=== PATIENT | female | born 1990 | race Caucasian/White ===

== ENCOUNTER 2017-06-25 00:51 | Inpatient (IN) | payer MEDICAID ==
[2017-06-25] MEDS ORDERED: Sodium Chloride 0.9% 1,000 ML IV ONE (02:00)
[2017-06-25] MEDS ORDERED: Sodium Chloride 0.9% 10 ML Syringe FLUSH PRN (02:20)
[2017-06-25] MEDS ORDERED: Sodium Chloride 0.9% 1,000 ML IV SCH (03:00)
[2017-06-25] MEDS ORDERED: Penicillin G Potassium 5 MILLUNITS in Sodium Chloride 0.9% 50 ML IV ONE ×2 (05:56→06:30)
--- NOTE | 2017-06-25 08:53 | PCM.PNLD ---
Labor Progress Note - VS & Meds Vital Signs: Last Vital Signs Temp 37.0 C 06/25/17 07:30 Pulse 73 06/25/17 08:04 Resp 18 06/25/17 08:04 BP 123/70 06/25/17 08:04 Pulse Ox 96 06/25/17 08:04 Active Medications: Current Medications Sodium Chloride (Normal Saline) 1,000 mls @ 150 mls/hr IV ASDIRECTED ROBI Last Admin: 06/25/17 03:01 Dose: 150 mls/hr Influenza Virus Vaccine (Fluzone Quad 2407-8815) 60 mcg IM .ONCE ONE Stop: 06/25/17 10:01 Sodium Chloride (Saline Flush) 10 ml FLUSH ASDIRECTED PRN PRN Reason: Keep Vein Open Discontinued Medications Sodium Chloride (Normal Saline) 1,000 mls @ 999 mls/hr IV .BOLUS ONE Stop: 06/25/17 03:00 Last Admin: 06/25/17 02:00 Dose: 999 mls/hr Penicillin G Potassium 5 (millunits/ Sodium Chloride) 50 mls @ 100 mls/hr IV ONETIME ONE Stop: 06/25/17 06:25 Last Admin: 06/25/17 05:56 Dose: 100 mls/hr Penicillin G Potassium 5 (millunits/ Sodium Chloride) 50 mls @ 100 mls/hr IV ONETIME ONE Stop: 06/25/17 06:59 Last Admin: 06/25/17 06:16 Dose: 100 mls/hr Influenza Virus Vaccine (Pharmacy To Dose - Influenza Vaccine) 1 each IM ONETIME ONE Stop: 06/27/17 11:01 - Uterine Contractions Uterine Monitoring Mode: External Port Deposit Contraction Frequency (min): 2-3 Contraction Duration (sec): 50-60 Contraction Intensity: Mild to Moderate Uterine Resting Tone: Soft - Vaginal Exam Dilation (cm): 2.5 Effacement (Percent): 80 Cervical Position: Midposition Sterile Vaginal Exam Performed By: Fanta Sharma - Labor Progress (Free Text) Labor Progress: 06/25/2017 26 yo here at 37 6/7 weeks gestation She is to be a RCS Came in last night with complaints of contractions SVE at that time a FT/50/-2 SVE now 2-3/80/-1 Surya every 2-4 minutes moderately strong regardless of interventions Did have a low grade fever with elevated WBC so did initiate GBS protocol regardless of rupture-had 5 units or Pen G given IV FHTs category one Patient tolerating pain of contractions with breathing and position change Surgeon and OR team notified and on there way- care will be given to the Surgeon Labs-O negative, Rubella Immune, Hep B negative, HIV negative, RPR nonreactive, GBS positive, Hgb-10.3
[2017-06-25] MEDS ORDERED: Oxytocin 10 Units/1 ML SDV ONE ×2 (09:07→09:32)
[2017-06-25] MEDS ORDERED: ceFAZolin 1 GM Vial ONE (09:24)
[2017-06-25] MEDS ORDERED: Lactated Ringers 1,000 ML ONE (09:56)
[2017-06-25] MEDS ORDERED: FLU Vacc QS 2017-18 (36mos UP)/PF 60 MCG/0.5 ML Syringe IM ONE (10:00)
[2017-06-25] MEDS ORDERED: Ondansetron 4 MG/2 ML SDV ONE (10:08)
[2017-06-25] MEDS ORDERED: fentaNYL 100 MCG/2 ML SDV ONE (10:24)
[2017-06-25] MEDS ORDERED: Ondansetron 4 MG/2 ML SDV IVPUSH PRN (10:57)
[2017-06-25] MEDS ORDERED: Naloxone 0.4 MG/ML SDV IV PRN (11:08)
[2017-06-25] MEDS ORDERED: HYDROmorphone/Normal Saline 15 MG/30 ML PCA IV PRN (11:08)
[2017-06-25] MEDS: D5 1/2 NS w/ 20 mEq/L KCl 1,000 ML IV SCH ×2 (13:06→21:31)
[2017-06-25] MEDS ORDERED: Lactated Ringers 1,000 ML IV SCH (13:30)
[2017-06-26] MEDS: Acetaminophen/HYDROcodone 325-5 MG Tab PO PRN ×4 (05:21→19:33)
--- NOTE | 2017-06-26 09:31 | PCM.SURGPN ---
- General Info Date of Service: 06/26/17 Date of Surgery/Procedure: 06/25/17 POD#: 1 Post-Op Diagnosis: Repeat section and bilateral tubal ligation. Functional Status: Reports: Pain Controlled, Tolerating Diet, Ambulating, Urinating (Siddiqui. ), Incentive Spirometry - Review of Systems General: Reports: No Symptoms HEENT: Reports: No Symptoms Pulmonary: Reports: No Symptoms Cardiovascular: Reports: No Symptoms Gastrointestinal: Reports: No Symptoms Genitourinary: Reports: No Symptoms Musculoskeletal: Reports: No Symptoms Skin: Reports: No Symptoms Neurological: Reports: No Symptoms Psychiatric: Reports: No Symptoms - Patient Data Vitals - Most Recent: Last Vital Signs Temp 98.8 F 06/26/17 07:35 Pulse 80 06/26/17 07:35 Resp 18 06/26/17 07:35 BP 124/72 06/26/17 08:23 Pulse Ox 97 06/26/17 07:35 Weight - Most Recent: 196 lb I&O - Last 24 Hours: Intake & Output 06/25/17 06/26/17 06/26/17 22:59 06:59 14:59 Intake Total 1088 1613 Output Total 1000 850 Balance 88 763 Lab Results Last 24 Hrs: Laboratory Results - last 24 hr 06/25/17 06/26/17 Range/Units 17:04 05:20 WBC 23.0 H 21.5 H (4.5-11.0) K/uL RBC 3.30 3.01 L (3.30-5.50) M/uL Hgb 10.4 L 9.5 L (12.0-15.0) g/dL Hct 31.1 L 28.7 L (36.0-48.0) % MCV 94 95 (80-98) fL MCH 32 H 32 H (27-31) pg MCHC 33 33 (32-36) % Plt Count 268 259 (150-400) K/uL Med Orders - Current: Current Medications Hydrocodone Bitart/Acetaminophen ([place] 325-5 Mg) 1 - 2 tab PO Q4H PRN PRN Reason: Pain Last Admin: 06/26/17 05:21 Dose: 1 tab Prenat Multivit/Mccurtain/Iron/Folic Ac ( Plus Iron) 1 each PO DAILY ROBI Discontinued Medications Cefazolin Sodium (Ancef) Confirm Administered Dose 2 gm .ROUTE .STK-MED ONE Stop: 06/25/17 09:25 Fentanyl (Sublimaze) Confirm Administered Dose 100 mcg .ROUTE .STK-MED ONE Stop: 06/25/17 10:25 Hydromorphone HCl (Dilaudid Nurse Administrator 15 Mg In Ns 30 Ml) 0 mg IV ASDIRECTED PRN; Protocol 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 Last Admin: 06/25/17 13:07 Dose: 15 mg Sodium Chloride (Normal Saline) 1,000 mls @ 999 mls/hr IV .BOLUS ONE Stop: 06/25/17 03:00 Last Admin: 06/25/17 02:00 Dose: 999 mls/hr Sodium Chloride (Normal Saline) 1,000 mls @ 150 mls/hr IV ASDIRECTED ROBI Last Admin: 06/25/17 03:01 Dose: 150 mls/hr Penicillin G Potassium 5 (millunits/ Sodium Chloride) 50 mls @ 100 mls/hr IV ONETIME ONE Stop: 06/25/17 06:25 Last Admin: 06/25/17 05:56 Dose: 100 mls/hr Penicillin G Potassium 5 (millunits/ Sodium Chloride) 50 mls @ 100 mls/hr IV ONETIME ONE Stop: 06/25/17 06:59 Last Admin: 06/25/17 06:16 Dose: 100 mls/hr Lactated Ringer's (Ringers, Lactated) Confirm Administered Dose 1,000 mls @ as directed .ROUTE .STK-MED ONE Stop: 06/25/17 09:57 Potassium Chloride/Dextrose/Sod Cl (D5 1/2 Ns W/ 20 Meq/L Kcl) 1,000 mls @ 125 mls/hr IV ASDIRECTED [facility] Last Admin: 06/25/17 21:31 Dose: 125 mls/hr Lactated Ringer's (Ringers, Lactated) 1,000 mls @ 125 mls/hr IV ASDIRECTED [facility] Stop: 06/25/17 21:29 Last Admin: 06/25/17 11:00 Dose: 125 mls/hr Influenza Virus Vaccine (Pharmacy To Dose - Influenza Vaccine) 1 each IM ONETIME ONE Stop: 06/27/17 11:01 Influenza Virus Vaccine (Fluzone Quad 9691-1064) 60 mcg IM .ONCE ONE Stop: 06/25/17 10:01 Last Admin: 06/25/17 16:15 Dose: 60 mcg Naloxone HCl (Narcan) 0.1 mg IV ASDIRECTED PRN PRN Reason: decreased respiratory rate Ondansetron HCl (Zofran) Confirm Administered Dose 4 mg .ROUTE .STK-MED ONE Stop: 06/25/17 10:09 Ondansetron HCl (Zofran) 4 mg IVPUSH Q6H PRN PRN Reason: Nausea/Vomiting Last Admin: 06/25/17 16:15 Dose: 4 mg Oxytocin (Pitocin) Confirm Administered Dose 10 unit .ROUTE .STK-MED ONE Stop: 06/25/17 09:08 Last Admin: 06/25/17 10:19 Dose: 10 unit Oxytocin (Pitocin) Confirm Administered Dose 10 unit .ROUTE .STK-MED ONE Stop: 06/25/17 09:33 Sodium Chloride (Saline Flush) 10 ml FLUSH ASDIRECTED PRN PRN Reason: Keep Vein Open - Exam Wound/Incisions: Healing Well, Dressing Dry and Intact, No Drainage Quality Assessment: Urine Catheter, DVT Prophylaxis General: Alert, Oriented, Cooperative, No Acute Distress Lungs: Clear to Auscultation (Clears with cough.) Cardiovascular: Regular Rate, Regular Rhythm GI/Abdominal Exam: Normal Bowel Sounds, Soft, Non-Tender Extremities: Normal Inspection Skin: Warm, Dry, Intact Neurological: No New Focal Deficit Psy/Mental Status: Alert, Normal Affect, Normal Mood - Problem List & Annotations (1) section SNOMED Code(s): 98869440 - section Status: Acute Current Visit: No - Problem List Review Problem List Initiated/Reviewed/Updated: Yes - My Orders Last 24 Hours: Active Orders 24 hr Category Date Time Status Patient Status [ADT] Routine ADT 06/25/17 10:57 Active Ambulate [RC] ASDIRECTED Care 06/25/17 10:57 Active Ambulate [RC] PER UNIT ROUTINE Care 06/25/17 10:57 Active Antiembolic Devices [RC] .Routine Care 06/25/17 11:00 Active DC Siddiqui Catheter [Urinary Catheter Removal] [RC] Per Care 06/26/17 09:26 Ordered Unit Routine Notify Provider Intake and Out [RC] PRN Care 06/25/17 11:02 Active Notify Provider Vital Signs [RC] PRN Care 06/25/17 10:59 Active Oxygen Therapy [RC] PRN Care 06/25/17 10:57 Active Pulse Oximetry [RC] CONTINUOUS Care 06/25/17 10:59 Active RT Incentive Spirometry [RC] ASDIRECTED Care 06/25/17 10:57 Active Up With Assistance [RC] ASDIRECTED Care 06/25/17 10:57 Active Up ad Monica [RC] ASDIRECTED Care 06/25/17 10:57 Active Up to Chair [RC] ASDIRECTED Care 06/25/17 10:57 Active VTE/DVT Education [RC] Click to Edit Care 06/25/17 11:00 Active Vital Signs [RC] Q4H Care 06/25/17 10:57 Active Respiratory Care Assess and Treatment [CONS] Routine Cons 06/25/17 10:57 Active Clear Liquid Diet [DIET] Diet 06/26/17 Breakfast Active Regular Diet [DIET] Diet 06/26/17 Lunch Ordered Acetaminophen/HYDROcodone [[place] 325-5 MG] Med 06/26/17 03:23 Active 1 - 2 tab PO Q4H PRN Vit with Ca/FA/Iron [ Plus Iron] Med 06/26/17 09:30 Ordered 1 each PO DAILY Abdominal Binder [OM.PC] Per Unit Routine Oth 06/25/17 10:59 Ordered DVT/VTE Prophylaxis Reflex [OM.PC] Per Unit Routine Oth 06/25/17 11:00 Ordered Peripheral IV Discontinue [OM.PC] Routine Oth 06/26/17 03:32 Ordered Sequential Compression Device [OM.PC] Routine Oth 06/25/17 10:57 Ordered Resuscitation Status Routine Resus Stat 06/25/17 10:57 Ordered Medication Orders Hydrocodone Bitart/Acetaminophen ([place] 325-5 Mg) 1 - 2 tab PO Q4H PRN PRN Reason: Pain Last Admin: 06/26/17 05:21 Dose: 1 tab Prenat Multivit/Mccurtain/Iron/Folic Ac ( Plus Iron) 1 each PO DAILY ROBI - Assessment Assessment (Free Text/Narrative):: Doing well s/p section with bilateral tubal ligation. - Plan Plan (Free Text/Narrative):: Advance diet to regular. IV is out. D/C Siddiqui. vitamins with iron.
[2017-06-26] MEDS: Prenatal Multivitamin with Calcium/Folic Acid/Iron Tab PO SCH (10:56)
[2017-06-27] MEDS: Acetaminophen/HYDROcodone 325-5 MG Tab PO PRN (02:30)
[2017-06-27 07:18] VITALS: BP 121/72
--- NOTE | 2017-06-27 07:37 | PCM.DCSUM1 ---
Discharge Summary - Hospital Course Free Text/Narrative:: This 26 year old white female was admitted on June 25, 2017 in labor and 37 6 /7 weeks gestation. She has had two prior sections and was scheduled later this month for a repeat section. In addition, she requested and was approved by the ethics committee for a bilateral tubal ligation. She received Ancef 2 grams IV and underwent the repeat section and bilateral tubal ligation on 06/25/17. A boy with APGARS of 8/9 was delivered. Her post operative course was unremarkable. The night of surgery she started on a clear liquid diet which she easily handled. She was advanced to regular which she has tolerated. She currently is doing well and wants to go home. She is discharged at this time in good condition. - Discharge Data Discharge Date: 06/27/17 Discharge Disposition: Home, Self-Care 01 Condition: Good - Discharge Diagnosis/Problem(s) (1) section SNOMED Code(s): 51409879 - section Status: Acute Current Visit: No - Patient Summary/Data Operative Procedure(s) Performed: Repeat section and bilateral tubal ligation. Consults: Consultations 06/25/17 10:57 Respiratory Care Assess and Treatment [CONS] Routine Comment: Physician Instructions: Hospital Course: See above narrative. - Patient Instructions Diet: Usual Diet as Tolerated Activity: No Lifting Over 10 Pounds, No Strenuous Activities (For six weeks from surgery except as needed to care for child. ) Driving, Other: Do not drive while taking narcotic pain medication. Showering/Bathing: May Shower, No Tub Bathing/Swimming Notify Provider of: Fever, Increased Pain, Swelling and Redness, Drainage, Nausea and/or Vomiting - Discharge Plan Prescriptions/Med Rec: Acetaminophen/HYDROcodone [[place] 325-5 MG] 1 - 2 tab PO Q4H PRN #30 tablet PRN Reason: Pain Home Medications: Home Meds PNV95/Ferrous Fumarate/FA [ Multivitamins] 1 each PO DAILY 05/27/13 [ History] Acetaminophen/HYDROcodone [[place] 325-5 MG] 2 tab PO Q4H PRN #30 tablet 06/13/13 [Rx] Acetaminophen/HYDROcodone [[place] 325-5 MG] 1 - 2 tab PO Q4H PRN #30 tablet 06/27 [Rx] Vit with Ca/FA/Iron [ Plus Iron] 1 each PO DAILY #0 tablet 06/03 [Rx] Referrals: Chaz Nunez MD [Physician] - (See me in [facility] in about two weeks. ) - Discharge Summary/Plan Comment DC Time >30 min.: Yes Discharge Summary/Plan Comment: See above narrative. I will see her in [facility] in about two weeks. - Patient Data Vitals - Most Recent: Last Vital Signs Temp 99.7 F 06/27/17 07:16 Pulse 87 06/27/17 07:16 Resp 16 06/27/17 07:16 BP 121/72 06/27/17 07:16 Pulse Ox 95 06/27/17 07:16 Weight - Most Recent: 196 lb I&O - Last 24 hours: Intake & Output 06/26/17 06/27/17 06/27/17 22:59 06:59 14:59 Intake Total 500 Balance 500 Med Orders - Current: Current Medications Hydrocodone Bitart/Acetaminophen ([place] 325-5 Mg) 1 - 2 tab PO Q4H PRN PRN Reason: Pain Last Admin: 06/27/17 02:30 Dose: 2 tab Prenat Multivit/[place]/Iron/Folic Ac ( Plus Iron) 1 each PO DAILY ROBI Last Admin: 06/26/17 10:56 Dose: 1 each Discontinued Medications Cefazolin Sodium (Ancef) Confirm Administered Dose 2 gm .ROUTE .STK-MED ONE Stop: 06/25/17 09:25 Fentanyl (Sublimaze) Confirm Administered Dose 100 mcg .ROUTE .STK-MED ONE Stop: 06/25/17 10:25 Hydromorphone HCl (Dilaudid Desktop Manager 15 Mg In Ns 30 Ml) 0 mg IV ASDIRECTED PRN; Protocol 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 Last Admin: 06/25/17 13:07 Dose: 15 mg Sodium Chloride (Normal Saline) 1,000 mls @ 999 mls/hr IV .BOLUS ONE Stop: 06/25/17 03:00 Last Admin: 06/25/17 02:00 Dose: 999 mls/hr Sodium Chloride (Normal Saline) 1,000 mls @ 150 mls/hr IV ASDIRECTED ROBI Last Admin: 06/25/17 03:01 Dose: 150 mls/hr Penicillin G Potassium 5 (millunits/ Sodium Chloride) 50 mls @ 100 mls/hr IV ONETIME ONE Stop: 06/25/17 06:25 Last Admin: 06/25/17 05:56 Dose: 100 mls/hr Penicillin G Potassium 5 (millunits/ Sodium Chloride) 50 mls @ 100 mls/hr IV ONETIME ONE Stop: 06/25/17 06:59 Last Admin: 06/25/17 06:16 Dose: 100 mls/hr Lactated Ringer's (Ringers, Lactated) Confirm Administered Dose 1,000 mls @ as directed .ROUTE .STK-MED ONE Stop: 06/25/17 09:57 Potassium Chloride/Dextrose/Sod Cl (D5 1/2 Ns W/ 20 Meq/L Kcl) 1,000 mls @ 125 mls/hr IV ASDIRECTED ON LICENSE OF [facility] Last Admin: 06/25/17 21:31 Dose: 125 mls/hr Lactated Ringer's (Ringers, Lactated) 1,000 mls @ 125 mls/hr IV ASDIRECTED ON LICENSE OF [facility] Stop: 06/25/17 21:29 Last Admin: 06/25/17 11:00 Dose: 125 mls/hr Influenza Virus Vaccine (Pharmacy To Dose - Influenza Vaccine) 1 each IM ONETIME ONE Stop: 06/27/17 11:01 Influenza Virus Vaccine (Fluzone Quad [id number]) 60 mcg IM .ONCE ONE Stop: 06/25/17 10:01 Last Admin: 06/25/17 16:15 Dose: 60 mcg Naloxone HCl (Narcan) 0.1 mg IV ASDIRECTED PRN PRN Reason: decreased respiratory rate Ondansetron HCl (Zofran) Confirm Administered Dose 4 mg .ROUTE .STK-MED ONE Stop: 06/25/17 10:09 Ondansetron HCl (Zofran) 4 mg IVPUSH Q6H PRN PRN Reason: Nausea/Vomiting Last Admin: 06/25/17 16:15 Dose: 4 mg Oxytocin (Pitocin) Confirm Administered Dose 10 unit .ROUTE .STK-MED ONE Stop: 06/25/17 09:08 Last Admin: 06/25/17 10:19 Dose: 10 unit Oxytocin (Pitocin) Confirm Administered Dose 10 unit .ROUTE .[facility]-MED ONE Stop: 06/25/17 09:33 Sodium Chloride (Saline Flush) 10 ml FLUSH ASDIRECTED PRN PRN Reason: Keep Vein Open *Q Meaningful Use (DIS) - VTE *Q VTE Criteria *Q: - Stroke *Q Stroke Criteria *Q: - AMI *Q AMI Criteria *Q:
--- NOTE | 2017-06-27 08:49 | OR ---
DATE OF PROCEDURE: 06/25/2017 PREOPERATIVE DIAGNOSES: Active labor, prior section, multiparity, desires sterilization. POSTOPERATIVE DIAGNOSES: Active labor, prior section, multiparity, desires sterilization. PROCEDURE: Repeat section, bilateral tubal ligation. SURGEON: Chaz Nunez MD. SAP GATHERER: Fanta Sharma CNM. Per ACOG standard of care guidelines, this procedure requires a boilermaker's assistant. ANESTHESIA: Subarachnoid block. INDICATION: This 26-year-old white female is with her third child. The first two were delivered by section. She is at 37 and 6/7 weeks' gestation. She went into labor so a request was made for a repeat section. Additionally, because of two prior sections, a request was made that we proceed with a sterilization procedure. I counseled her for a repeat section and bilateral tubal ligation, and she gave her informed consent to proceed. DESCRIPTION OF PROCEDURE: After adequate spinal anesthesia was obtained, the patient had a wedge placed under her right flank. A Siddiqui catheter was already in place. Her abdomen was prepped and draped in the usual sterile fashion. Time-out was held. An incision was made through her existing Pfannenstiel scar. This was carried deep using Bovie cautery to the fascia. The fascia was incised transversely and upper and lower subfascial flaps were developed. The muscles in the midline were , and the underlying peritoneum was elevated and incised. The peritoneal and muscle incisions were extended superiorly and inferiorly the length of the flaps using Bovie cautery while protecting underlying structures. The bladder flap was dissected free from the lower uterine segment. A transverse lower uterine segment incision was made, releasing normal-appearing amniotic fluid. The incision was extended laterally and curved superiorly in both directions using bandage scissors while protecting underlying child. Additionally, the uterine incision was further opened bluntly. The child's head was delivered. Fanta Sharma aspirated its nose and mouth free. The child's body was delivered. This was found to be a baby boy, ultimately shown to have scores of 8, 9, and 9. The cord was doubly clamped and divided, and Fanta Sharma attended to the child. Cord blood was collected. The uterus was delivered up onto the anterior abdominal wall. The placenta was delivered. It appeared to have a 3-vessel cord. Residual membranes were removed. IV Pitocin was started by the Anesthesia Service, and 10 units of Pitocin was directly injected into the uterine body. The transverse lower uterine segment incision was then closed with a running locking stitch of #1 Vicryl. A second running locking stitch was placed over the first to further bolster the closure. The retrouterine space was irrigated and suctioned dry. Attention was directed to the right fallopian tube first. It was grasped, elevated, and cross -clamped, forming a knuckle. A portion of this knuckle was excised and sent to pathology. The exposed ends of tube were crushed, cauterized, and suture-ligated with 2-0 Prolene. The base of the knuckle was suture-ligated with 2-0 Monocryl. This tube was allowed to return back to its normal position. The left tube was then grasped and elevated, and a portion of the tube was cross-clamped, forming a knuckle. A portion of this knuckle was excised and sent to pathology. The exposed ends of the tube were crushed, cauterized, and suture- ligated with 2-0 Prolene. The base of the knuckle was suture-ligated with 2-0 Monocryl. Hemostasis was noted. This tube was then released. The bladder flap was re- attached up over the lower uterine segment with a running stitch of #1 Vicryl. The uterus was returned to the abdominal cavity. The muscles and peritoneum in the midline were closed with a running stitch of #2 Vicryl. The incision was irrigated and suctioned dry. The fascia was closed with a running stitch of #2 Vicryl. The incision was again irrigated and suctioned dry. The skin was then closed with a subcuticular stitch of 4-0 Vicryl. Dermabond was applied. The patient tolerated the procedure well and was brought from the operating room in good condition. Chaz Nunez MD /[id number] ANA
[2017-06-27] MEDS: Prenatal Multivitamin with Calcium/Folic Acid/Iron Tab PO SCH (10:01)
== END 2017-06-27 11:03 | disposition home or self-care (01) | DRG 766 ==
LOC: JP.OBCHECK 00:51 → JP.OB 07:15 → OBSVTOIN 09:51 → JP.MS 09:51
PROVIDERS: ADMIT Advanced Practice Midwife; ATTEND Surgery
PROC: 10D00Z1 Extraction of Products of Conception, Low, Open Approach (ICD-10-PCS; principal; 2017-06-25)
PROC: 0UL70ZZ Occlusion of Bilateral Fallopian Tubes, Open Approach (ICD-10-PCS; 2017-06-25)
DX: O34.219 Maternal care for unspecified type scar from previous cesarean delivery (principal); N85.8 Other specified noninflammatory disorders of uterus; O99.824 Streptococcus B carrier state complicating childbirth; O75.82 Onset (spontaneous) of labor after 37 completed weeks of gestation but before 39 completed weeks gestation, with delivery by (planned) cesarean section; Z3A.37 37 weeks gestation of pregnancy; Z37.0 Single live birth; Z64.1 Problems related to multiparity; Z30.2 Encounter for sterilization; Z23 Encounter for immunization; Z88.1 Allergy status to other antibiotic agents
CPT/HCPCS: 36415; 59409; 80305; 81001; 85025; 85027; 88302; 88307; 90686; 94762; 99211; A9270-GY; J0690; J1170; J2405; J2540; J2590; J3010; J3480; J7040; J7050; J7120

== ENCOUNTER 2017-07-23 20:39 | Emergency (ER) | payer MEDICAID ==
[2017-07-23 21:36] VITALS: BP 179/94
--- NOTE | 2017-07-23 22:09 | EDM.PDOC ---
ED HPI GENERAL MEDICAL PROBLEM - General Chief Complaint: Fever Stated Complaint: C SECT 06/25 FEVER Time Seen by Provider: 07/23/17 21:40 Source of Information: Reports: Patient History Limitations: Reports: No Limitations - History of Present Illness INITIAL COMMENTS - FREE TEXT/NARRATIVE: pt arrived with a concern of a temp of 101. She does not feel ill. She has no urine symptoims. She did have a csection 1 month ago. Onset: Gradual Duration: Hour(s): Location: Reports: Other ( no symptoms. 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: - Infectious Disease History Infectious Disease History: Reports: Chicken Pox - Past Surgical History Female Surgical History: Reports: Section Social & Family History - Family History Family Medical History: Noncontributory - Tobacco Use Smoking Status *Q: Current Every Day Smoker Years of Tobacco use: 11 Packs/Tins Daily: 0.5 Used Tobacco, but Quit: No Second Hand Smoke Exposure: Yes - Caffeine Use Caffeine Use: Reports: Coffee Other Caffeine Use: 2 cans a day - Alcohol Use Days Per Week of Alcohol Use: 0 - Recreational Drug Use Recreational Drug Use: No ED ROS ENT - Review of Systems Review Of Systems: See Below Constitutional: Reports: Fever, Other (pt spiked a temp and she was concerned because she is 1 month post c section) HEENT: Reports: No Symptoms Respiratory: Reports: No Symptoms Cardiovascular: Reports: No Symptoms Endocrine: Reports: No Symptoms GI/Abdominal: Reports: No Symptoms, Other (pt thought her c section scar looked good. ) : Reports: No Symptoms Musculoskeletal: Reports: No Symptoms Skin: Reports: No Symptoms ED EXAM, ENT - Physical Exam Exam: See Below Text/Narrative:: pt arrived feeling good. She did spike a temp earlier of 101. She is 1 month post csection/ She has no urine symptoms. She has no resp symptoms. Exam Limited By: No Limitations General Appearance: Alert, No Apparent Distress Ears: Normal TMs Nose: Normal Inspection Mouth/Throat: Normal Inspection Head: Atraumatic Neck: Normal Inspection Respiratory/Chest: No Respiratory Distress Cardiovascular: Regular Rate, Rhythm GI/Abdominal: Soft, Non-Tender, Other ( wound looks good. ) (Female) Exam: Other (pt has no change in discharge. Her abdoman is not tender. She is not distended. ) Rectal (Female) Exam: Deferred Back: Normal Inspection Extremities: Normal Inspection Neurological: Alert, Oriented, Normal Cognition Course - Vital Signs Last Recorded V/S: Last Vital Signs Temp 36.7 C 07/23/17 21:38 Pulse 62 07/23/17 21:38 Resp 14 07/23/17 21:38 BP 179/94 H 07/23/17 21:38 Pulse Ox 100 07/23/17 21:38 - Orders/Labs/Meds Orders: Active Orders 24 hr Category Date Time Status CULTURE URINE [RM] Stat Lab 07/23/17 22:55 Ordered Labs: Laboratory Tests 07/23/17 07/23/17 07/23/17 Range/Units 22:18 22:24 22:24 WBC 10.3 (4.5-11.0) K/uL RBC 3.76 (3.30-5.50) M/uL Hgb 11.5 L D (12.0-15.0) g/dL Hct 34.7 L (36.0-48.0) % MCV 92 (80-98) fL MCH 31 (27-31) pg MCHC 33 (32-36) % Plt Count 273 (150-400) K/uL Neut % (Auto) 53 (36-66) % Lymph % (Auto) 37 (24-44) % [place] % (Auto) 6 (2-6) % Eos % (Auto) 3 (2-4) % Baso % (Auto) 1 (0-1) % Sodium 142 (140-148) mmol/L Potassium 3.7 (3.6-5.2) mmol/L Chloride 105 (100-108) mmol/L Carbon Dioxide 28 (21-32) mmol/L Anion Gap 8.9 (5.0-14.0) mmol/L BUN 9 (7-18) mg/dL Creatinine 0.8 (0.6-1.0) mg/dL Est Cr Clr Drug Dosing 92.02 mL/min Estimated GFR (MDRD) > 60 (>60) Glucose 88 (74-106) mg/dL Calcium 9.2 (8.5-10.1) mg/dL Urine Color Yellow Urine Appearance Clear Urine pH 7.0 (4.5-8.0) Ur Specific [place] 1.015 (1.008-1.030) Urine Protein Negative (NEGATIVE) mg/dL Urine Glucose (UA) Normal (NEGATIVE) mg/dL Urine Ketones Negative (NEGATIVE) mg/dL Urine Occult Blood Trace (NEGATIVE) Urine Nitrite Negative (NEGATIVE) Urine Bilirubin Negative (NEGATIVE) Urine Urobilinogen Normal (NORMAL) mg/dL Ur Leukocyte Esterase Negative (NEGATIVE) Urine RBC 0-5 (0-5) Urine WBC 0-5 (0-5) Ur Epithelial Cells Rare Amorphous Sediment Not seen Urine Bacteria Moderate Urine Mucus Few - Re-Assessments/Exams Free Text/Narrative Re-Assessment/Exam: 07/23/17 23:02 pt had a fairly normal looking urine. Her wbc is not elevated. Her electrolyes are good. Departure - Departure Time of Disposition: 22:55 Disposition: Home, Self-Care 01 Condition: Fair Clinical Impression: Fever - Discharge Information Referrals: Janny Christie PA [Primary Care Provider] - Forms: ED Department Discharge Care Plan Goals: push fluids, call if pt develops marked temps. This could be the beginning of a resp illness. - My Orders Last 24 Hours: My Active Orders 07/23/17 22:55 CULTURE URINE [RM] Stat - Assessment/Plan Last 24 Hours: My Active Orders 07/23/17 22:55 CULTURE URINE [RM] Stat
== END 2017-07-23 23:03 | disposition home or self-care (01) ==
LOC: JP.ED 20:39
DX: O86.4 Pyrexia of unknown origin following delivery (principal); O99.335 Smoking (tobacco) complicating the puerperium; Z88.8 Allergy status to other drugs, medicaments and biological substances
CPT/HCPCS: 36415; 80048; 81001; 85025; 87086; 99283; 99284